=== PATIENT | female | born 1970 | race Asian ===

== ENCOUNTER → 2018-04-29 | Outpatient (CLI) | payer OTHER ==
[2018-04-29 12:16] LABS: FREE T4 0.94 ng/dL (0.76-1.46); T4(THYROXINE) 8.4 ug/dL (4.7-13.3)
[2018-04-29 12:40] LABS: BASOPHIL % 0.6 % (0-2); PLATELET COUNT 293 x10^3mcL (130-400)
[2018-04-29 12:53] LABS: T3 TOTAL 0.9 ng/mL
[2018-04-29 13:33] LABS: RED CELL DISTRIBUTION WIDTH 19.4 % (11.5-14.5)
[2018-04-29 13:50] LABS: rbc morphology (normal/abnorm) ABNORMAL (NORMAL)
[2018-04-29 13:52] LABS: ovalocyte/elliptocyte 1+
== END | disposition home or self-care (01) ==
LOC: MA 11:19
PROVIDERS: Obstetrics & Gynecology
PROC: BU4CZZZ Ultrasonography of Uterus and Ovaries (ICD-10-PCS; principal; 2018-04-29)
PROC: BH02ZZZ Plain Radiography of Bilateral Breasts (ICD-10-PCS; 2018-04-29)
DX: N92.1 Excessive and frequent menstruation with irregular cycle (principal); Z12.31 Encounter for screening mammogram for malignant neoplasm of breast
CPT/HCPCS: 77067; 84439

== ENCOUNTER → 2019-05-28 | Outpatient (CLI) | payer OTHER | END | disposition home or self-care (01) | LOC: MA 10:26 | PROC: BH02ZZZ Plain Radiography of Bilateral Breasts (ICD-10-PCS; principal; 2019-05-28) | DX: Z12.31 Encounter for screening mammogram for malignant neoplasm of breast (principal) | CPT/HCPCS: 77067 ==